=== PATIENT | male | born 1950 | race Caucasian/White ===

== ENCOUNTER 2018-09-02 10:41 | Outpatient (CLI) | payer MEDICARE ==
--- NOTE | 2018-09-02 15:01 | PET ---
PET CT: HISTORY: A 68-year-old male with lung cancer. Right lung cancer biopsy done 08/15/2018. Exam requested for ini tial staging. TECHNIQUE: PET scanning with CT attenuation correction was performed from the base of the brain through the prox imal thighs following intravenous administration of 12 mCi [id number]. FINDINGS: Comparison is made with the CT chest of 08/16/2018 from [facility] [place]. There is a 13 mm nodule in the posterior right lung apex with increased FDG localization and an SUV o f 8.5. There is a hypermetabolic right middle lobe lung nodule with SUV of 9.5. A nodule in the rig ht upper lobe has an SUV of 2.2. The solid nodules on the anterior hemithorax demonstrate no abnorma l FDG localization. Hypermetabolic mediastinal and right hilar lymph nodes are seen. The maximum SUV in the mediastinal lymph nodes is in the subcarinal lymph node with an SUV of 9.1. Right hilar lymph nodes demonstrate SUV of 6.8. No kathryn hypermetabolism is seen in the neck, axilla, abdomen, or pelvis. No hypermetabolic liver, a drenal, or skeletal lesions are seen. The CT scan used for attenuation correction demonstrates no evidence of pleural effusions or ascites. There is physiologic activity in the GI and tracts and the visualized portions of the brain. IMPRESSION: Findings are consistent with right lung malignancy/metastatic disease and mediastinal and right hilar lymph kathryn metastases. POS: INDIRA
== END 2018-09-02 10:42 | disposition home or self-care (01) ==
LOC: PET 10:41
PROVIDERS: ATTEND Internal Medicine Hematology & Oncology
DX: C34.90 Malignant neoplasm of unspecified part of unspecified bronchus or lung (principal); C77.1 Secondary and unspecified malignant neoplasm of intrathoracic lymph nodes
CPT/HCPCS: 78815; A9552

== ENCOUNTER 2018-09-17 12:23 | Outpatient (CLI) | payer MEDICARE ==
--- NOTE | 2018-09-17 13:20 | RAD ---
EXAM: Chest PA and lateral: HISTORY: Preop COMPARISON: 08/16/2018 FINDINGS: There is patchy density in the right lower lung suspicious for focal infiltrate. This is a new densit y when compared to prior study. Heart and mediastinum appear unremarkable. Vascularity is normal. Osseous structures are unremarkable. IMPRESSION: Evidence of new focal infiltrate in the right lower lung field.
[2018-09-17 13:29] LABS: #Basophils 0.1 thou/uL (0.0-0.2); #Eosinphils 0.2 thou/uL (0.0-0.7); #Lymphocytes 2.1 thou/uL (1.20-3.40); #Monocytes 0.4 thou/uL (0.11-0.59); #Neutrophils 6.2 thou/uL (1.40-6.50); %Basophils 0.7 % (0.0-1.0); %Eosinophils 2.5 % (0.0-10.0); %Lymphocytes 23.8 % (21.0-51.0); %Monocytes 4.1 % (0.0-10.0); %Neutrophils 68.9 % (42.0-75.0); Hemoglobin 15.8 g/dL (14.0-18.0); Mean Corpuscular Volume 94.2 fL (78.0-98.0); Mean Platelet Volume 9.7 fL (7.4-10.4); Platelet Count 170 thou/uL (130-400); RBC Distribution Width 11.6 % (11.5-14.5); Red Blood Cell (RBC) Count 4.93 mill/uL (4.70-6.10); White Blood Cell (WBC) Count 8.9 thou/uL (4.8-10.8)
[2018-09-17 13:50] LABS: Anion Gap 12 mmol/L (10-20); BUN (Urea Nitrogen) 11 mg/dL (8.4-25.7); Calc. Creatinine Clearance 0 mL/min (70-130); Calcium 9.4 mg/dL (7.8-10.44); Carbon Dioxide 30 mmol/L (23-31); Chloride 101 mmol/L (98-107); Estimated GFR-MDRD Greater than 90; Glucose 123 mg/dL (80-115); Potassium 4.3 mmol/L (3.5-5.1); Sodium 139 mmol/L (136-145)
--- NOTE | 2018-09-22 14:52 | EKG ---
Test Reason : Blood Pressure : / mmHG Vent. Rate : 057 BPM Atrial Rate : 057 BPM P-R Int : 140 ms QRS Dur : 080 ms QT Int : 422 ms P-R-T Axes : 042 066 037 degrees QTc Int : 410 ms Sinus bradycardia Otherwise normal ECG Confirmed by LUIS TERESA ([id number]) on 09/22/2018 2:51:56 PM Referred By: WILD Confirmed By:LUIS TERESA
== END 2018-09-17 12:24 | disposition home or self-care (01) ==
LOC: LABBT 12:23
PROVIDERS: ATTEND Specialist
DX: Z01.818 Encounter for other preprocedural examination (principal); C34.90 Malignant neoplasm of unspecified part of unspecified bronchus or lung; R91.8 Other nonspecific abnormal finding of lung field
CPT/HCPCS: 71046; 80048; 85025; 93005; 93010

== ENCOUNTER 2018-09-21 05:55 | Day surgery (SDC) | payer MEDICARE ==
[2018-09-17 12:30] VITALS: BMI 29.2
[2018-09-21] MEDS ORDERED: Fentanyl 100 MCG/2 ML VIAL ONE ×2 (06:35→07:08)
[2018-09-21] MEDS ORDERED: Propofol 500 MG/50 ML VIAL ONE (06:36)
[2018-09-21] MEDS ORDERED: Bupivacaine HCl 0.5%/Epinephrine 1:200,000/PF 30 ml Vial ONE (06:45)
[2018-09-21] MEDS ORDERED: Lidocaine 2% PF 5 ML VIAL ONE (06:45)
[2018-09-21] MEDS ORDERED: Lidocaine 1% (PF) 30 ML VIAL ONE ×2 (06:47→07:08)
[2018-09-21] MEDS ORDERED: Bupivacaine/Epinephrine 0.25% 30 ML VIAL ONE (06:47)
[2018-09-21] MEDS ORDERED: Midazolam HCl 2 mg/2 ml Vial ONE (07:08)
[2018-09-21] MEDS ORDERED: Dexamethasone 4 mg/ml Vial ONE (07:09)
--- NOTE | 2018-09-21 08:46 | RAD ---
RADIOGRAPH CHEST 1 VIEW: DATE: 09/21/2018 TIME: 8:32 AM HISTORY: 68-year-old male with lung cancer. Status post MediPort placement. COMPARISON: 09/17/2018 FINDINGS: There is a new left subclavian implantable vascular access port with distal tip overlying the SVC/rig ht atrial junction. There is no pneumothorax. The previously described small focal infiltrate at the right lung base has become more faint but larger. No pulmonary edema or cardiomegaly. IMPRESSION: 1) status post left subclavian implantable vascular access port placement without pneumothorax. 2) slightly more widespread right lower lung zone mild infiltrate.
[2018-09-21] MEDS ORDERED: PROPOFOL 200 MG/20 ML VIAL ONE (11:11)
--- NOTE | 2018-09-21 14:33 | OP ---
DATE OF PROCEDURE: 09/21/2018 PREOPERATIVE DIAGNOSIS: Right lung cancer. POSTOPERATIVE DIAGNOSIS: Right lung cancer. OPERATION PERFORMED: Placement of left subclavian standard-sized power compatible MediPort. ANESTHESIA: Total intravenous anesthesia per Obinna Mendoza CRNA, local with 0.25% Marcaine with epinephrine. INDICATIONS: This patient is a 68-year-old male recently diagnosed with inoperable lung cancer. MediPort is requested for chemotherapy administration. DESCRIPTION OF OPERATION: Informed consent was obtained. The patient was taken to the operating room where total intravenous anesthesia was obtained with the patient in supine position. Right periclavicular area was prepped with ChloraPrep and draped in sterile fashion. Local anesthetic was infiltrated and a large-gauge needle was passed under the clavicle in the subclavian vein. Guidewire was passed through the needle and fluoroscopically confirmed to enter the superior vena cava. Additional local anesthetic was infiltrated and transverse incision was created based on needle insertion site. A subcutaneous pocket was dissected inferiorly. Introducer dilator was passed over the guidewire under fluoroscopic guidance. The guidewire and dilator were removed, and the catheter was passed through the introducer. The tip of the catheter was positioned at the atriocaval junction and the catheter was trimmed to the appropriate length and secured to the locking hub of the MediPort. The port was then placed in the subcutaneous pocket where it was secured to the pectoral fascia with 2 interrupted sutures of 3-0 Prolene. The incision was then closed in layers with 3-0 and 4-0 Monocryl. Additional local anesthetic was infiltrated. The port was cannulated with a Barriga needle and it aspirated blood freely and was flushed with heparinized saline. Dermabond was placed externally on the skin incision. There were no complications. Blood loss was negligible. The patient tolerated the procedure well and was taken to recovery room in stable condition. FINDINGS: I placed a standard size port in the left subclavian vein. The procedure was uneventful. His anatomy internally and externally appeared normal. There was essentially no blood loss. Job ID: [id number]
== END 2018-09-21 09:18 | disposition home or self-care (01) ==
LOC: SDC 05:55
PROVIDERS: ATTEND Specialist
PROC: 05H633Z Insertion of Infusion Device into Left Subclavian Vein, Percutaneous Approach (ICD-10-PCS; principal; 2018-09-21)
DX: C34.91 Malignant neoplasm of unspecified part of right bronchus or lung (principal); I11.9 Hypertensive heart disease without heart failure; E11.9 Type 2 diabetes mellitus without complications; E78.00 Pure hypercholesterolemia, unspecified; F17.290 Nicotine dependence, other tobacco product, uncomplicated; Z79.899 Other long term (current) drug therapy
CPT/HCPCS: 36561; 71045; 71046; 76000; 77293; 77300; 77301; 77336; 77338; 77386 ×6; 77417; 80048; 80053; 85025; 93005; C1788; 36415; J0131; J0670; J0690; J1100; J1642; J2001; J2250; J2704; J3010

== ENCOUNTER 2018-12-13 10:50 | Outpatient (CLI) | payer MEDICARE ==
--- NOTE | 2018-12-13 13:31 | CT ---
CT CHEST WITH CONTRAST: Date: 12/13/18 INDICATION: Follow-up lung cancer. Comparison made to PET/CT dated 09/02/18. Comparison made to CT from [facility] dated 08/16/18. FINDINGS: The nodule in the posterior right apex which was noted to be hyperintense on recent PET scan has sign ificantly regressed on today's CT. There continues to be apical pleural thickening in this region wit h some slight nodularity. Right upper lobe nodular density seen on the prior scans also show significant improvement. There con tinues to be a tiny pleural based nodule in the peripheral right upper lobe along the fissure measuri ng approximately 8 mm today. This previously measured approximately 13 mm. Another small adjacent nod ule seen previously is not present today in this region. The large nodule in the peripheral right middle lobe which is pleural based and described on prior ex ams has also decreased in size. It has irregular shape, but shows overall decrease. It is measured at maximum 1.9 cm width x 2.6 cm AP dimension in axial plane today. Previous axial measurements on 08/10 09/26 recorded at 3.2 x 3.5 cm. Review of the mediastinal lymph nodes reveals regression of a paratracheal lymph node when compared t o prior study. This small paratracheal lymph node was noted to be hot on the prior PET scan and measu res approximately 1.0 cm today. It previously measured up to 1.6 cm. There continues to be right juli r adenopathy, although slightly less pronounced than on the prior study. There is carinal and subcari nal adenopathy which appears decreased. A subcarinal node to the right of midline previously measured up to 2.8 cm AP dimension. It measures approximately 2.0 cm to date. Images through upper abdomen appear unremarkable. Visualized liver, spleen, and pancreas are unremark able. Osseous structures are unremarkable. IMPRESSION: Improvement in right lung masses and adenopathy when compared to prior exam as detailed above. POS: SHAHEED
[2018-12-13] MEDS ORDERED: ISOVUE-370 76%-LOCM 1 ML ONE (14:38)
== END 2018-12-13 10:51 | disposition home or self-care (01) ==
LOC: BICCT 10:50
PROVIDERS: ATTEND Internal Medicine Hematology & Oncology
DX: C34.11 Malignant neoplasm of upper lobe, right bronchus or lung (principal); R91.8 Other nonspecific abnormal finding of lung field; R59.0 Localized enlarged lymph nodes
CPT/HCPCS: 71260; Q9966

== ENCOUNTER 2019-05-09 09:30 | Outpatient (CLI) | payer MEDICARE ==
--- NOTE | 2019-05-09 11:09 | CT ---
CT CHEST WITH CONTRAST CLINICAL INDICATION: Lung cancer. Follow-up evaluation. COMPARISON: 12/13/2018. FINDINGS: Aorta: Vascular calcifications are seen in the thoracic aorta as well as involving the coronary arter ies. The thoracic aorta is normal in caliber. Lungs: Previously seen scattered nodular densities within the right upper lobe and right middle lobe on the prior study are not seen on today's exam. There has been continued interval decrease in size of the lobulated mass in the right middle lobe, and no discrete mass is seen in this region. There ar e prominent linear and interstitial densities seen in the right middle lobe and at the medial aspect of the right upper lobe which may be related to postradiation changes. No discrete measurable pulmonary nodule or mass is seen in the lungs bilaterally. Calcified granuloma is again seen in the right upper lobe. Mediastinum: No enlarged mediastinal lymph nodes are seen by CT size criteria. Prominent subcarinal l ymph node on the prior exam has decreased in size. Lymph node in subcarinal region on the prior study measured approximately 2 cm in short axis dimension and now measures much less than 1 cm on tod ay's exam. There is minimal soft tissue density seen in the right hilar location, but the soft tissue density has decreased compared to prior study is likely related to improvement in lymphadenopa thy. Thyroid gland: Normal appearance where imaged. Osseous structures: Degenerative changes are seen in the spine. No suspicious lytic or sclerotic osse ous lesions are identified. Chest wall: A left subclavian Mediport catheter remains in place. There is minimal stranding seen wit hin the right anterior chest wall which is at the level of interstitial densities in the right middle lobe and right upper lobe and is likely attributable to postradiation changes as well. Upper abdomen: Nonobstructing calculus midportion left kidney is seen which measures approximately 4 mm. Subcentimeter too small to characterize hypodense lesion is seen in the midportion left kidney. There is a small nodule measuring 11 mm which is isodense to the liver and seen posterior to the infe rior aspect of the right hepatic lobe. This is stable when compared to prior studies, and there is no abnormal FDG activity seen in this nodule on prior PET/CT exam. IMPRESSION: 1. Continued interval decrease in size with essentially resolution of the nodular densities in the ri ght upper lobe and right middle lobe. Previously seen lobulated mass in the right middle lobe is no longer visualized. However, there are prominent linear and interstitial parenchymal densities in the right upper lobe and right middle lobe which are probably attributable to postradiation changes. No new pulmonary nodule or mass is appreciated. 2. Interval decrease in size of mediastinal and right hilar lymphadenopathy. No enlarged lymph nodes are seen by CT size criteria on today's exam.
== END 2019-05-09 09:31 | disposition home or self-care (01) ==
LOC: SCSCT 09:30
PROVIDERS: ATTEND Internal Medicine Hematology & Oncology
DX: C34.90 Malignant neoplasm of unspecified part of unspecified bronchus or lung (principal); R59.0 Localized enlarged lymph nodes; R91.8 Other nonspecific abnormal finding of lung field
CPT/HCPCS: 71260

== ENCOUNTER 2019-09-15 08:57 | Outpatient (CLI) | payer MEDICARE ==
--- NOTE | 2019-09-15 12:19 | CT ---
CT CHEST WITH IV CONTRAST: Date: 09/15/2019 HISTORY: Malignant neoplasm upper lobe right bronchus of lung. COMPARISON: 05/09/2019. FINDINGS: No mediastinal, hilar, or axillary mass or lymphadenopathy seen. There are vascular calcifications wi thout evidence of aneurysmal dilatation of the thoracic aorta. No pleural or pericardial effusions ar e seen. The parenchymal changes in the right upper lobe and right middle lobe consistent with prior radiation therapy are stable. Calcified granuloma on right upper lobe again seen. A 5 mm peripheral nodule is seen at the right lung base posteriorly, which is new since the last exam. There are degenerative changes in the spine. Upper abdominal tomograms demonstrate nonobstructing 4.0 mm calculus in the left kidney and an 11.0 mm small nodule isodense to the liver posterior to the in ferior aspect of the right hepatic lobe which are stable. The nodular density does not demonstrate hy permetabolic activity on the previous PET scans. IMPRESSION: 1. Stable postradiation changes in the right lung. 2. Interval development of a new 5.0 mm right basilar lung nodule. A follow-up CT scan should be per formed in 3 months. POS: LIYAH
== END 2019-09-15 08:58 | disposition home or self-care (01) ==
LOC: SCSCT 08:57
PROVIDERS: ATTEND Internal Medicine Hematology & Oncology
DX: C34.11 Malignant neoplasm of upper lobe, right bronchus or lung (principal); R91.1 Solitary pulmonary nodule
CPT/HCPCS: 71260; 82565

== ENCOUNTER 2019-12-13 08:48 | Outpatient (CLI) | payer MEDICARE ==
--- NOTE | 2019-12-13 10:30 | CT ---
CT CHEST WITH CONTRAST: Date: 12/13/2019 INDICATION: Lung cancer. Follow-up. Comparison made to prior exam of 09/15/2019. FINDINGS: The parenchymal changes in the right upper lobe and right middle lobe which have been previously note d are again seen and appear stable. Parenchymal stranding and parenchymal haziness is again seen cons istent with post radiation change. These findings are stable. The calcified granuloma in the anterior right mid lung is again noted. The lungs show no evidence of effusion or acute infiltrate. The 5.0 mm nodule described in the posterior right lower lobe on the prior study is not seen today. Mediastinum unremarkable. Small calcified mediastinal lymph node is again seen. Other nonspecific med iastinal lymph nodes are also stable. Thoracic aorta unremarkable. Proximal pulmonary arteries are opacified and appear unremarkable. Image s through the upper abdomen unremarkable. Osseous structures unremarkable. IMPRESSION: 1. Lung parenchymal changes secondary to post radiation in the right upper and right middle lobes ap pear stable. 2. The 5.0 mm nodular density described in the posterior right lower lobe on the prior study is not seen today. 3. No other interval change. POS: AGW
== END 2019-12-13 08:49 | disposition home or self-care (01) ==
LOC: SCSCT 08:48
PROVIDERS: ATTEND Internal Medicine Hematology & Oncology
DX: C34.11 Malignant neoplasm of upper lobe, right bronchus or lung (principal); R91.8 Other nonspecific abnormal finding of lung field
CPT/HCPCS: 71260

== ENCOUNTER 2020-04-13 09:19 | Outpatient (CLI) | payer MEDICARE ==
[~2020-04-13 09:19] MED LIST: Iopamidol-370 76% 500 ML 1 ML ONE
[2020-04-13 10:07] LABS: Estimated GFR-MDRD - POC Greater than 90
--- NOTE | 2020-04-13 10:22 | CT ---
CT OF THE CHEST WITH IV CONTRAST INDICATION: History of non-small cell lung cancer stage IIIB; follow-up examination; status post chem otherapy and radiation therapy COMPARISON: Prior CT the thorax with contrast dated December 13, 2019 FINDINGS: CHEST: Lungs: The soft tissue thickening surrounding the hilar region is stable likely reflecting sequela of therapy. No large hilar mass is evident. Radiation induced fibrosis and bronchiectasis of the right upper lobe are stable. Pleural space: No effusion. Mediastinum: No definite pathologically enlarged lymph node is seen within the mediastinum or left hi lar region. There is a 6 mm AP window lymph node that is stable. There is a 5 mm left suprahilar lymph node that is stable. There are coronary artery and thoracic aortic callus cases. There are calc ified lymph nodes within the mediastinum. There is a left subclavian vein chest wall port. Upper abdomen:Few shotty appearing lymph nodes are seen within the upper abdomen, none of which are p athologically enlarged based on size criteria. Adrenal glands are normal appearing. Osseous structures: No acute fracture or subluxation demonstrated. No suspicious osteolytic or osteob lastic lesion is identified. There is scattered degenerative and osteoarthritic change present. Soft tissues:Normal. IMPRESSION: Stable post therapy changes involving the right hilar region and right upper lobe. No suspicious find ings to suggest recurrent malignancy or metastatic disease in the thorax.
== END 2020-04-13 09:20 | disposition home or self-care (01) ==
LOC: BICCT 09:19
PROVIDERS: ATTEND Internal Medicine Hematology & Oncology
DX: C34.11 Malignant neoplasm of upper lobe, right bronchus or lung (principal)
CPT/HCPCS: 71260; 82565; Q9967

== ENCOUNTER 2021-07-12 08:43 | Outpatient (CLI) | payer MEDICARE ==
[2021-07-12] MEDS ORDERED: Iopamidol 370 76% 100 ML VIAL ONE (11:09)
[2021-07-12] MEDS ORDERED: Magnevist 469MG/ML 20 ML VIAL ONE (12:32)
== END 2021-07-12 08:44 | disposition home or self-care (01) ==
LOC: CT 08:43
PROVIDERS: ATTEND Internal Medicine Hematology & Oncology
DX: C34.11 Malignant neoplasm of upper lobe, right bronchus or lung (principal); R19.8 Other specified symptoms and signs involving the digestive system and abdomen
CPT/HCPCS: 70553; 71260; 74177; 82565; A9579; Q9967

== ENCOUNTER 2021-07-12 10:30 | Outpatient (CLI) | payer MEDICARE ==
[2021-07-12 11:59] LABS: Hemoglobin 17.3 g/dL (13.5-17.5); Mean Corpuscular HGB CONC 34.5 g/dL (32.0-36.0); Mean Corpuscular Hemoglobin 31.7 pg (27.0-33.0); Mean Corpuscular Volume 91.9 fl (81.2-95.1); Mean Platelet Volume 11.2 fl (7.4-10.4); Platelet Count 213 10x3/uL (150-450); RBC Distribution Width 12.6 % (11.5-14.5); Red Blood Cell (RBC) Count 5.46 10x6/uL (4.32-5.72); White Blood Cell (WBC) Count 16.7 10x3/uL (3.5-10.5)
[2021-07-12 12:08] LABS: Anion Gap 14 mmol/L (10-20); BUN (Urea Nitrogen) 28 mg/dL (8.4-25.7); Calc. Creatinine Clearance 0 mL/min (70-130); Calcium 8.9 mg/dL (7.8-10.44); Carbon Dioxide 31 mmol/L (23-31); Chloride 94 mmol/L (98-107); Glucose 131 mg/dL (83-110); Potassium 4.2 mmol/L (3.5-5.1); Sodium 135 mmol/L (136-145)
[2021-07-12 19:25] LABS: SARS-CoV-2 PCR by NAA Not Detected (NotDetected)
== END 2021-07-12 10:31 | disposition home or self-care (01) ==
LOC: LABBT 10:30
PROVIDERS: ATTEND Neurological Surgery
DX: Z01.818 Encounter for other preprocedural examination (principal); D33.0 Benign neoplasm of brain, supratentorial; Z20.822 Contact with and (suspected) exposure to COVID-19
CPT/HCPCS: 80048; 85027; 93005; U0003; U0005; 93010

== ENCOUNTER 2022-01-24 07:49 | Outpatient (CLI) | payer MEDICARE ==
[2022-01-24] MEDS ORDERED: GASTROGRAFIN 30 ML BOT ONE (09:07)
[2022-01-24] MEDS ORDERED: Iopamidol 370 76% 100 ML VIAL ONE (09:07)
== END 2022-01-24 07:50 | disposition home or self-care (01) ==
LOC: CT 07:49
PROVIDERS: ATTEND Internal Medicine Hematology & Oncology
DX: C34.11 Malignant neoplasm of upper lobe, right bronchus or lung (principal); C79.31 Secondary malignant neoplasm of brain; K76.0 Fatty (change of) liver, not elsewhere classified; J98.4 Other disorders of lung
CPT/HCPCS: 71260; 74177; 82565; Q9963; Q9967

== ENCOUNTER 2022-06-04 14:09 | Outpatient (CLI) | payer MEDICARE ==
[~2022-06-04 14:09] MED LIST changes: -Iopamidol-370 76% 500 ML 1 ML ONE; +Magnevist 469MG/ML 20 ML VIAL ONE
== END 2022-06-04 14:10 | disposition home or self-care (01) ==
LOC: TBSIIMAG 14:09
PROVIDERS: ATTEND Radiology Radiation Oncology
DX: C34.90 Malignant neoplasm of unspecified part of unspecified bronchus or lung (principal); C79.31 Secondary malignant neoplasm of brain; G93.89 Other specified disorders of brain
CPT/HCPCS: 70553; A9579

== ENCOUNTER 2022-07-17 08:19 | Outpatient (CLI) | payer MEDICARE ==
[2022-07-17] MEDS ORDERED: Iopamidol 370 76% 100 ML VIAL ONE (17:47)
[2022-07-17] MEDS ORDERED: Magnevist 469MG/ML 20 ML VIAL ONE (18:06)
== END 2022-07-17 08:20 | disposition home or self-care (01) ==
LOC: CT 08:19
PROVIDERS: ATTEND Internal Medicine Hematology & Oncology
DX: C34.11 Malignant neoplasm of upper lobe, right bronchus or lung (principal); C79.31 Secondary malignant neoplasm of brain; Z98.890 Other specified postprocedural states
CPT/HCPCS: 70553; 71260; 74177; 82565; A9579; Q9967

== ENCOUNTER 2022-08-08 07:02 | Outpatient (CLI) | payer MEDICARE | END 2022-08-08 07:03 | disposition home or self-care (01) | LOC: BICULT 07:02 | PROVIDERS: ATTEND Radiology Radiation Oncology | DX: K80.70 Calculus of gallbladder and bile duct without cholecystitis without obstruction (principal); K76.0 Fatty (change of) liver, not elsewhere classified | CPT/HCPCS: 76705 ==

== ENCOUNTER 2022-10-23 10:18 | Outpatient (CLI) | payer MEDICARE ==
[2022-10-23 11:28] LABS: #Basophils 0.1 10x3/uL (0.0-0.2); #Eosinphils 0.1 10x3/uL (0.0-0.5); #Monocytes 0.6 10x3/uL (0.0-1.1); #Neutrophils 5.9 10x3/uL (1.5-8.4); %Eosinophils 1.3 % (0.0-6.0); %Lymphocytes 19.4 % (18.0-47.0); %Monocytes 7.7 % (0.0-10.0); %Neutrophils 70.4 % (40.0-75.0); Hemoglobin 15.8 g/dL (13.5-17.5); Mean Corpuscular HGB CONC 34.3 g/dL (32.0-36.0); Mean Corpuscular Hemoglobin 32.2 pg (27.0-33.0); Mean Corpuscular Volume 93.7 fl (81.2-95.1); Mean Platelet Volume 11.1 fl (7.4-10.4); Platelet Count 199 10x3/uL (150-450); Red Blood Cell (RBC) Count 4.91 10x6/uL (4.32-5.72); White Blood Cell (WBC) Count 8.4 10x3/uL (3.5-10.5)
[2022-10-23 11:47] LABS: ALT (SGPT) 21 U/L (8-55); AST (SGOT) 22 U/L (5-34); Albumin 4.6 g/dL (3.4-4.8); Alkaline Phosphatase 71 U/L (40-110); Anion Gap 15 mmol/L (10-20); BUN (Urea Nitrogen) 13 mg/dL (8.4-25.7); Bilirubin, Direct 0.1 mg/dL (0.1-0.3); Bilirubin, Total 0.5 mg/dL (0.2-1.2); Calc. Creatinine Clearance 0 mL/min (70-130); Calcium 9.6 mg/dL (7.8-10.44); Carbon Dioxide 26 mmol/L (23-31); Chloride 102 mmol/L (98-107); Estimated GFR 92; Glucose 116 mg/dL (83-110); Potassium 4.6 mmol/L (3.5-5.1); Protein, Total 7.6 g/dL (5.8-8.1); Sodium 138 mmol/L (136-145)
== END 2022-10-23 10:19 | disposition home or self-care (01) ==
LOC: LABBT 10:18
PROVIDERS: ATTEND Surgery
DX: Z01.812 Encounter for preprocedural laboratory examination (principal); K80.20 Calculus of gallbladder without cholecystitis without obstruction
CPT/HCPCS: 80053; 80076; 85025; 93005; 93010

== ENCOUNTER 2022-10-24 05:58 | Day surgery (SDC) | payer MEDICARE ==
[2022-10-23 10:48] VITALS: BMI 28.7
[2022-10-24] MEDS ORDERED: Indocyanine Green 25 MG/10 ML VIAL ONE ×2 (06:28→06:43)
[2022-10-24] MEDS ORDERED: Bupivacaine/Epinephrine 0.25% 30 ML VIAL ONE (06:42)
[2022-10-24] MEDS ORDERED: Vasopressin 20 UNITS/ML VIAL ONE (07:09)
[2022-10-24] MEDS ORDERED: SUGAMMADEX SODIUM 200 MG/2 ML VIAL ONE (07:09)
[2022-10-24] MEDS ORDERED: fentaNYL 50 mcg/mL 1 mL Vial ONE ×2 (07:09)
[2022-10-24] MEDS ORDERED: Famotidine/PF 20 mg/2ml Vial ONE (07:09)
[2022-10-24] MEDS ORDERED: cefOXitin 2 GM VIAL ONE (07:22)
[2022-10-24] MEDS ORDERED: Sodium Chloride 0.9% 100 ML ONE (07:22)
[2022-10-24] MEDS ORDERED: PROPOFOL 200 MG/20 ML VIAL ONE (07:34)
[2022-10-24] MEDS ORDERED: Lidocaine 1% PF 5 ML VIAL ONE (07:34)
[2022-10-24] MEDS ORDERED: Esmolol 100 MG/10 ML VIAL ONE (07:34)
[2022-10-24] MEDS ORDERED: Rocuronium Bromide 10 MG/ML (10ML VIAL) ONE (07:34)
[2022-10-24] MEDS ORDERED: Ondansetron PF 4 MG/2 ML Vial ONE (07:34)
[2022-10-24] MEDS ORDERED: Ketorolac Tromethamine 30 MG/ML VIAL ONE (07:34)
[2022-10-24] MEDS ORDERED: ePHEDrine Sulfate 50 MG/10 ML VIAL ONE (07:34)
[2022-10-24] MEDS ORDERED: HYDROcodone/Acetaminophen 5/325 mg Tablet ONE ×2 (10:46→10:49)
== END 2022-10-24 11:10 | disposition home or self-care (01) ==
LOC: SDC 05:58
PROVIDERS: ATTEND Surgery
PROC: 0FT44ZZ Resection of Gallbladder, Percutaneous Endoscopic Approach (ICD-10-PCS; principal; 2022-10-24)
DX: K80.10 Calculus of gallbladder with chronic cholecystitis without obstruction (principal); E78.5 Hyperlipidemia, unspecified; E11.9 Type 2 diabetes mellitus without complications; I10 Essential (primary) hypertension; E78.00 Pure hypercholesterolemia, unspecified; Z79.899 Other long term (current) drug therapy
CPT/HCPCS: 47562; J3010; 88304; C1776; J0694; J1885; J2405; J2704; J3490; S0028

== ENCOUNTER 2023-01-26 11:26 | Outpatient (CLI) | payer MEDICARE | END 2023-01-26 11:27 | disposition home or self-care (01) | LOC: SCSMRI 11:26 | PROVIDERS: ATTEND Radiology Radiation Oncology | DX: C79.31 Secondary malignant neoplasm of brain (principal); G93.9 Disorder of brain, unspecified | CPT/HCPCS: 70553 ==

== ENCOUNTER 2023-02-10 08:18 | Outpatient (CLI) | payer MEDICARE | END 2023-02-10 08:19 | disposition home or self-care (01) | LOC: BICCT 08:18 | PROVIDERS: ATTEND Internal Medicine Hematology & Oncology | DX: C34.11 Malignant neoplasm of upper lobe, right bronchus or lung (principal); C79.31 Secondary malignant neoplasm of brain; K22.89 Other specified disease of esophagus; Z90.49 Acquired absence of other specified parts of digestive tract | CPT/HCPCS: 71260; 74177; 82565 ==

== ENCOUNTER 2023-05-28 07:45 | Outpatient (CLI) | payer MEDICARE ==
[2023-05-28] MEDS ORDERED: Magnevist 469MG/ML 20 ML VIAL ONE (14:03)
== END 2023-05-28 07:46 | disposition home or self-care (01) ==
LOC: MRI 07:45
PROVIDERS: ATTEND Radiology Radiation Oncology
DX: C34.90 Malignant neoplasm of unspecified part of unspecified bronchus or lung (principal); C79.31 Secondary malignant neoplasm of brain; G93.9 Disorder of brain, unspecified; Z98.890 Other specified postprocedural states
CPT/HCPCS: 70553; A9579